=== PATIENT | female | born 1955 | race Caucasian/White ===

== ENCOUNTER → 2020-03-03 | Outpatient (CLI) | payer MEDICARE, OTHER | END | disposition home or self-care (01) | LOC: CFH 13:34 | PROVIDERS: ATTEND Internal Medicine Cardiovascular Disease | DX: I08.3 Combined rheumatic disorders of mitral, aortic and tricuspid valves (principal); E78.5 Hyperlipidemia, unspecified | CPT/HCPCS: 93306 ==

== ENCOUNTER 2020-05-26 07:44 | Day surgery (SDC) | payer MEDICARE, OTHER ==
[~2020-05-26] VITALS: Ht 170.2 cm; Wt 84.1 kg
[2020-05-26] MEDS ORDERED: SODIUM CHLORIDE 0.9% 1,000 ML IV SCH ×2 (08:15→14:00)
[2020-05-26 08:22] VITALS: BP 131/72
[2020-05-26] MEDS ORDERED: DIPHENHYDRAMINE 50 MG/ML, 1ML IVPush ONE (08:30)
[2020-05-26] MEDS ORDERED: INSU100I32 SC (08:37)
[2020-05-26] MEDS ORDERED: LIRA0.6P SC (08:37)
[2020-05-26] MEDS ORDERED: CHOL10003 PO (08:37)
[2020-05-26] MEDS ORDERED: METF500T17 PO (08:37)
[2020-05-26] MEDS ORDERED: LEVO50TA5 PO (08:37)
[2020-05-26] MEDS ORDERED: ATOR40TA78 PO (08:37)
[2020-05-26] MEDS ORDERED: GLUC1TAB55 PO (08:38)
[2020-05-26] MEDS ORDERED: MULT1TAB57 PO (08:38)
[2020-05-26 08:39] LABS: BASOPHILS # (AUTO) 0.03 x10^3/uL (0-0.1); BASOPHILS % (AUTO) 0 % (0-1); EOSINOPHILS # (AUTO) 0.16 x10^3/uL (0-0.4); EOSINOPHILS % (AUTO) 2 % (1-7); LYMPHOCYTES # (AUTO) 1.72 x10^3/uL (1-3.4); LYMPHOCYTES % (AUTO) 21 % (22-44); MD NO; MEAN CORPUSCULAR HEMOGLOBIN 27.8 pg (27.0-34.8); MEAN CORPUSCULAR HGB CONC 32.4 g/dL (32.4-35.8); MEAN PLATELET VOLUME 9.3 fL (7.4-10.4); MONOCYTES # (AUTO) 0.74 x10^3/uL (0.2-0.8); MONOCYTES % (AUTO) 9 % (2-9); NEUTROPHILS % (AUTO) 67 % (42-75); PLATELET COUNT 217 x10^3/uL (130-400); RED CELL DISTRIBUTION WIDTH 15.7 % (9.6-15.2)
[2020-05-26 08:48] LABS: ANION GAP 7 mmol/L (5-15); CALCIUM 9.5 mg/dL (8.5-10.1); CHLORIDE 107 mmol/L (98-107)
[2020-05-26 08:50] LABS: CREATININE 0.74 mg/dL (0.55-1.02)
[2020-05-26] MEDS ORDERED: DIPHENHYDRAMINE 50 MG/ML, 1ML ONE (10:02)
[2020-05-26] MEDS ORDERED: MIDAZOLAM 1 MG/ML, 5ML ONE (11:04)
[2020-05-26] MEDS ORDERED: VERAPAMIL 2.5 MG/ML, 2ML ONE (11:04)
[2020-05-26] MEDS ORDERED: LIDOCAINE-MPF 1%, 5ML ONE (11:04)
[2020-05-26] MEDS ORDERED: FENTANYL PF 100 MCG/2ML ONE (11:04)
[2020-05-26] MEDS ORDERED: HEPARIN 1,000 UNITS/ML, 10ML ONE (11:05)
[2020-05-26] MEDS ORDERED: PROPOFOL 10 MG/ML, 20ML ONE (15:26)
== END 2020-05-26 15:29 | disposition home or self-care (01) ==
LOC: CACL 07:44
PROVIDERS: ATTEND Internal Medicine Cardiovascular Disease
DX: I08.3 Combined rheumatic disorders of mitral, aortic and tricuspid valves (principal); Z20.828 Contact with and (suspected) exposure to other viral communicable diseases; I27.20 Pulmonary hypertension, unspecified; E11.9 Type 2 diabetes mellitus without complications; Z79.84 Long term (current) use of oral hypoglycemic drugs; Z87.891 Personal history of nicotine dependence; Z88.5 Allergy status to narcotic agent; Z88.8 Allergy status to other drugs, medicaments and biological substances; Z91.048 Other nonmedicinal substance allergy status
CPT/HCPCS: 36415; 80048; 85025; 87635; 93312; 93321; 93325; 93460; 99156; 99157; C1769; C1894; J1200; J1644; J2250; J2704; J3010; Q9967

== ENCOUNTER → 2020-06-17 | Outpatient (CLI) | payer MEDICARE, OTHER ==
[~2020-06-17] MED LIST: ATOR40TA78 PO; CHOL10003 PO; GLUC1TAB55 PO; INSU100I32 SC; LEVO50TA5 PO; LIRA0.6P SC; METF500T17 PO; MULT1TAB57 PO; OMNIPAQUE 350 MG/ML, 100ML BOTTLE ONE
== END | disposition home or self-care (01) ==
LOC: CFH 13:06
PROVIDERS: ATTEND Thoracic Surgery (Cardiothoracic Vascular Surgery)
DX: R91.1 Solitary pulmonary nodule (principal); J98.4 Other disorders of lung; K80.20 Calculus of gallbladder without cholecystitis without obstruction
CPT/HCPCS: 71275; Q9967

== ENCOUNTER → 2020-06-27 | Outpatient (CLI) | payer MEDICARE, OTHER ==
[~2020-06-27] MED LIST changes: -OMNIPAQUE 350 MG/ML, 100ML BOTTLE ONE
== END | disposition home or self-care (01) ==
LOC: STAR 11:41
PROVIDERS: ATTEND Anesthesiology
DX: Z01.812 Encounter for preprocedural laboratory examination (principal); Z20.828 Contact with and (suspected) exposure to other viral communicable diseases
CPT/HCPCS: 36415; 87635

== ENCOUNTER 2020-07-21 13:24 | Emergency (ER) | payer MEDICARE, OTHER ==
[~2020-07-21] VITALS: Ht 170.2 cm; Wt 79.0 kg
[~2020-07-21 13:24] MED LIST changes: +ASPI81TA45 PO; +DOCU100C33 PO; +FURO-92 PO; +HYDR-3237 PO; +POTA20TA6 PO; +WARF2.5T32 PO
--- NOTE | 2020-07-21 13:40 | NUR ---
triage note: EKG done in triage
[2020-07-21 14:43] LABS: BASOPHILS % (AUTO) 0 % (0-1); EOSINOPHILS % (AUTO) 2 % (1-7); LYMPHOCYTES % (AUTO) 15 % (22-44); MEAN CORPUSCULAR HGB CONC 31.9 g/dL (32.4-35.8); MEAN PLATELET VOLUME 7.8 fL (7.4-10.4); MONOCYTES % (AUTO) 9 % (2-9); NEUTROPHILS % (AUTO) 74 % (42-75); PLATELET COUNT 350 x10^3/uL (130-400); RED BLOOD COUNT 4.51 x10^6/uL (3.82-5.3); RED CELL DISTRIBUTION WIDTH 14.9 % (9.6-15.2)
[2020-07-21 14:56] LABS: MD NO
[2020-07-21 14:59] LABS: ALANINE AMINOTRANSFERASE 45 U/L (12-78); ALKALINE PHOSPHATASE 138 U/L (45-117); ANION GAP 8 mmol/L (5-15); BILIRUBIN,TOTAL 0.6 mg/dL (0.2-1.0); CALCIUM 8.7 mg/dL (8.5-10.1); CHLORIDE 104 mmol/L (98-107); CREATININE 0.78 mg/dL (0.55-1.02)
[2020-07-21 15:00] LABS: ALBUMIN 3.5 g/dL (3.4-5.0); TOTAL PROTEIN 7.9 g/dL (6.4-8.2); TROPONIN I 0.016 ng/mL (0.000-0.045)
--- NOTE | 2020-07-21 15:18 | NUR ---
N/O RECEIVED FOR LABS
[2020-07-21 15:58] LABS: FREE T4 (FREE THYROXINE) 1.37 ng/dL (0.76-1.46)
[2020-07-21 16:30] VITALS: BP 123/60
--- NOTE | 2020-07-21 16:31 | NUR ---
PT RESTING COMFORTABLY ON GURNEY. AWAITING MD REASSESSMENT.
== END 2020-07-21 17:20 | disposition home or self-care (01) ==
LOC: ED 17:04
DX: R55 Syncope and collapse (principal); R00.0 Tachycardia, unspecified; R07.89 Other chest pain; R00.2 Palpitations; I49.9 Cardiac arrhythmia, unspecified; E11.9 Type 2 diabetes mellitus without complications
CPT/HCPCS: 36415; 71045; 80053; 84439; 84443; 84484; 85025; 93005; 99285